=== PATIENT | female | born 1960 ===

== ENCOUNTER 2020-12-01 12:00 | Emergency (ER) | payer MEDICAID ==
[2020-12-01] MEDS ORDERED: LORazepam 0.5 MG Tab PO ONE (12:57)
--- NOTE | 2020-12-01 13:03 | EDM.PDOCBH ---
ED HPI GENERAL MEDICAL PROBLEM - General Chief Complaint: Behavioral/Psych Stated Complaint: MEDICAL-COVID POSITIVE Time Seen by Provider: 12/01/20 12:50 Source of Information: Reports: Patient. Denies: Old Records History Limitations: Reports: Other (no old records) - History of Present Illness INITIAL COMMENTS - FREE TEXT/NARRATIVE: 60 yo female came up here from [place], [place] for BAM tx for her Covid that she has had for about a week. Has a PHx of anxiety and needs something to calm her down before her son drives her back to [place]. 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: Other (see below) (BAM therapy for Covid) - Related Data Allergies Allergy/AdvReac Type Severity Reaction Status Date / Time No Known Allergies Allergy Verified 12/01/20 12:38 Home Meds: Home Meds FLUoxetine HCl [Prozac] 60 mg PO DAILY 12/01/20 [History] Meclizine [Antivert] 12.5 mg PO DAILY 12/01/20 [History] Omeprazole 20 mg PO BEDTIME 12/01/20 [History] Ondansetron [Ondansetron Odt] 4 mg PO Q8HR PRN 12/01/20 [History] buPROPion HCL [Bupropion Xl] 150 mg PO DAILY 12/01/20 [History] Past Medical History HEENT History: Reports: Impaired Vision Psychiatric History: Reports: Anxiety, Depression - Past Surgical History Female Surgical History: Reports: Hysterectomy Social & Family History - Tobacco Use Tobacco Use Status *Q: Never Tobacco User - Caffeine Use Caffeine Use: Reports: Coffee - Recreational Drug Use Recreational Drug Use: No ED ROS GENERAL - Review of Systems Review Of Systems: See Below Constitutional: Reports: No Symptoms HEENT: Reports: No Symptoms Respiratory: Reports: No Symptoms Cardiovascular: Reports: No Symptoms GI/Abdominal: Reports: No Symptoms : Reports: No Symptoms Musculoskeletal: Reports: No Symptoms Skin: Reports: No Symptoms Neurological: Reports: No Symptoms Psychiatric: Reports: Anxiety ED EXAM, BEHAVIORAL HEALTH - Physical Exam Exam: See Below Exam Limited By: No Limitations General Appearance: Alert, WD/WN, Mild Distress Eye Exam: Bilateral Eye: Normal Inspection Ears: Normal External Exam, Normal Canal, Hearing Grossly Normal Nose: Normal Inspection, No Blood Throat/Mouth: Normal Inspection, Normal Lips, Normal Voice, No Airway Compromise Head: Atraumatic, Normocephalic Neck: Normal Inspection Respiratory/Chest: No Respiratory Distress, No Accessory Muscle Use Extremities: Normal Inspection Neurological: Alert, Normal Mood/Affect, CN II-XII Intact, Normal Cognition, No Motor/Sensory Deficits, Oriented x 3 Psychiatric: Alert, Normal Cognition, Oriented, Other (anxious) Skin Exam: Warm, Dry, Intact, Normal color, No rash COURSE, BEHAVIORAL HEALTH COMP - Course Vital Signs: Last Vital Signs Temp 35.5 C L 12/01/20 12:35 Pulse 89 12/01/20 12:35 Resp 18 12/01/20 12:35 BP 126/82 12/01/20 12:35 Pulse Ox 100 12/01/20 12:35 Orders, Labs, Meds: Medications Discontinued Medications Generic Name Dose Route Start Last Admin Trade Name Kevin PRN Reason Stop Dose Admin Lorazepam 0.5 mg 12/01/20 12:57 12/01/20 13:15 Lorazepam 0.5 Mg Tab PO 12/01/20 12:58 0.5 mg ONETIME ONE Administration Medical Clearance: 12/01/20 13:38 feels better after Ativan 0.5mg po Departure - Departure Time of Disposition: 13:38 Disposition: Home, Self-Care 01 Condition: Good Clinical Impression: Anxiety - Discharge Information *PRESCRIPTION DRUG MONITORING PROGRAM REVIEWED*: Not Applicable *COPY OF PRESCRIPTION DRUG MONITORING REPORT IN PATIENT JESSICA: Not Applicable Referrals: PCP,Unknown [Primary Care Provider] - Forms: ED Department Discharge Additional Instructions: Continue your usual meds. Follow up with your provider as needed. No driving today. Sepsis Event Note (ED) - Evaluation Sepsis Screening Result: No Definite Risk - Focused Exam Vital Signs: Vital Signs Temp Pulse Resp BP Pulse Ox 12/01/20 12:35 35.5 C L 89 18 126/82 100
== END 2020-12-01 13:48 | disposition home or self-care (01) ==
LOC: JP.ED 12:00
DX: F41.9 Anxiety disorder, unspecified (principal)
CPT/HCPCS: 99283; A9270